=== PATIENT | female | born 1955 | race Caucasian/White ===

== ENCOUNTER → 2017-04-28 | Outpatient (CLI) | payer OTHER ==
[2017-04-28 13:15] LABS: BASOPHILS ABSOLUTE AUTO 0.07 K/mm3 (0.00-0.23); BASOPHILS PERCENT AUTO 1 % (0-2); EOSINOPHILS ABSOLUTE AUTO 0.29 K/mm3 (0.00-0.68); EOSINOPHILS PERCENT AUTO 2 % (0-6); Hematocrit 40.3 % (33.0-51.0); Hemoglobin 13.9 g/dL (11.5-16.0); IMMATURE GRAN ABSOLUTE AUTO 0.03 K/mm3 (0.00-0.10); IMMATURE GRAN PERCENT AUTO 0 % (0-1); LYMPHOCYTES ABSOLUTE AUTO 2.13 K/mm3 (0.84-5.20); LYMPHOCYTES PERCENT AUTO 18 % (21-46); MONOCYTES ABSOLUTE AUTO 0.79 K/mm3 (0.16-1.47); MONOCYTES PERCENT AUTO 7 % (4-13); Mean Corpuscular HGB 31.7 pg (26.0-34.0); Mean Corpuscular HGB Conc 34.5 g/dL (31.5-36.5); Mean Corpuscular Volume 92 fL (80-100); Mean Platelet Volume 9.3 fL (9.1-12.4); NEUTROPHILS ABSOLUTE AUTO 8.53 K/mm3 (1.96-9.15); NEUTROPHILS PERCENT AUTO 72 % (41-73); Platelet Count 355 K/mm3 (150-400); RDW Coefficient Variation 13.2 % (11.7-14.2); RDW Standard Deviation 44.4 fL (35.1-46.3); Red Blood Cell Count 4.39 M/mm3 (3.80-5.20); White Blood Cell Count 11.84 K/mm3 (4.00-11.30)
[2017-04-28 13:57] LABS: Anion Gap 12 mmol/L (6-16); Blood Urea Nitrogen 15 mg/dL (8-24); Bun/Creatinine Ratio 22.7 (12.0-20.0); CO2, Blood 26 mmol/L (21-32); Calcium, Blood 8.9 mg/dL (8.5-10.1); Chloride, Blood 104 mmol/L (98-108); Creatinine, Blood 0.66 mg/dL (0.40-1.00); Glomerular Filtration Rate >60 (60-); Glucose, Blood 100 mg/dL (70-99); Potassium, Blood 4.1 mmol/L (3.5-5.5); Sodium, Blood 142 mmol/L (136-145)
[2017-04-28 14:00] LABS: Troponin I <0.017 ng/mL (0.000-0.040)
== END | disposition home or self-care (01) ==
LOC: LAB EV 13:06
PROVIDERS: Physician Assistant Surgical
DX: R07.81 Pleurodynia (principal)
CPT/HCPCS: 80048; 84484; 85025; 85379

== ENCOUNTER 2022-01-25 08:05 | Day surgery (SDC) | payer OTHER ==
[~2022-01-25] VITALS: Ht 172.7 cm; Wt 84.1 kg
[~2022-01-25 08:05] MED LIST: ABILIFY MYCITE5 M1 PO; ABILIFY MYCITE5 MG PO; ATOR10 PO; BUPR150ER PO; CLON1 PO; DICL75ER PO; Desyrel150 MG PO; ESCI20 PO; ESTRADIOL TD; LAMO100 PO; LEVSOD100 PO; PROG100 PO; PROGESTERONE PO; Pravachol40 MG PO; TERB250 PO; TRAZ100 PO
--- NOTE | 2022-01-25 08:41 | NUR ---
Ambulatory in Day Surgery. History, Chart, Medications and Allergies reviewed before start of procedure.Lungs clear T/O to Auscultation. Patient confirms NPO status and agrees with scheduled surgery. Pre-Op teaching done. Pt verbalizes understanding.
--- NOTE | 2022-01-25 12:50 | NUR ---
ARRIVAL FROM PACU PT ARRIVED FROM PACU, TRANSFERED FROM [facility] WITH SLIDE SHEET. PT REPORTS PAIN OF 4/10 CRAMPY IN LOWER ABD. HEAT PAD PROVIDED FOR COMFORT. LAP SITES X4 ALONG UPPER ABD WITH WOUND GLUE, CDI CURRENTLY. SCANT DRAINAGE ON MATHEW PAD. PT SATS GREATER THAN 92% ON ROOM AIR. ENCOURAGING DEEP BREATHING. PT TOLERATING WATER AND JELLO AT THIS TIME WITH NO NAUSEA. SHE WILL CALL ONCE PAIN BEGINS INCREASING. CURRENTLY SLEEPING IN BED, AT BEDSIDE.
[2022-01-25] MEDS ORDERED: ACET500 PO (13:57)
[2022-01-25] MEDS ORDERED: IBUP400 PO (13:58)
[2022-01-25] MEDS ORDERED: OXAYDO5 M1 PO (13:59)
--- NOTE | 2022-01-25 16:35 | NUR ---
DISCHARGE PT HAS BEEN UP AND AMBULATING TO RESTROOM WITH NO WEAKNESS, VOIDING WELL IN RESTROOM. TOLERATING PO WELL WITH NO NAUSEA. PAIN WELL CONTROLLED PER EMAR. PT DENIED ANY FURTHER NEEDS AND IS EXCITED TO GO HOME. IVS REMOVED IN BOTH HANDS WITH NO REDNESS IN INFILTRATION. ALL BELONGINGS WITH PATIENT. ESCORTED OUT WITH A WHEELCHAIR.
== END 2022-01-25 16:34 | disposition home or self-care (01) ==
LOC: ORSCMMR 08:05 → ORD 09:15 → SURS 11:42 → ORSCMMR 16:34
PROVIDERS: Obstetrics & Gynecology
PROC: 0UT74ZZ Resection of Bilateral Fallopian Tubes, Percutaneous Endoscopic Approach (ICD-10-PCS; principal; 2022-01-25 09:15)
PROC: 0UT94ZZ Resection of Uterus, Percutaneous Endoscopic Approach (ICD-10-PCS; principal; 2022-01-25 09:15)
DX: N95.0 Postmenopausal bleeding (principal); R52 Pain, unspecified; N80.03 Adenomyosis of the uterus; D25.9 Leiomyoma of uterus, unspecified; E78.5 Hyperlipidemia, unspecified; Z79.899 Other long term (current) drug therapy; E03.9 Hypothyroidism, unspecified; Z87.891 Personal history of nicotine dependence
CPT/HCPCS: 58571; S2900; 88307; A9270; J0690; J1100; J1885; J2250; J2370; J2405; J2704; J2795; J3010; J7120

== ENCOUNTER → 2023-03-08 | Outpatient (CLI) | payer MEDICARE ==
[~2023-03-08] MED LIST changes: +ACET500 PO; +IBUP400 PO; +OXAYDO5 M1 PO
== END ==
LOC: LAB SHORT 17:30 → LAB 17:30
DX: B35.1 Tinea unguium (principal)
CPT/HCPCS: 87102

== ENCOUNTER → 2024-09-10 | Outpatient (CLI) | payer MEDICARE ==
[2024-09-10 15:57] LABS: Source, Urine Clean Catch
[2024-09-10 19:05] LABS: Bilirubin, Urine Neg (Neg); Color, Urine Yellow (P-Yellow); Glucose Qualitative, Urine Neg (Neg); Ketones, Urine Neg (Neg); Leukocyte Esterase, Urine 2+ (Neg); Protein, Urine 2+ (Neg); Specific Gravity, Urine 1.020 (1.003-1.022); Urobilinogen, Urine NORM (Normal)
[2024-09-10 19:22] LABS: White Blood Cells, Urine 50-100 /hpf (0-5)
== END ==
LOC: LAB SHORT 15:56 → LAB 15:56
PROVIDERS: Obstetrics & Gynecology
DX: R30.0 Dysuria (principal)
CPT/HCPCS: 81001